=== PATIENT | male | born 1980 | race Caucasian/White ===

== ENCOUNTER 2019-02-02 05:00 | Emergency (ER) | payer MEDICAID, SELFPAY ==
[2019-02-02 05:02] VITALS: BP 141/74; PULSE 77; RESP 16; TEMP 36.6; O2SAT 97
--- NOTE | 2019-02-02 05:18 | W.ED.GENAD ---
Discharge Plan Disposition Patient Disposition: HOME Condition: Good Discharge Details Chief Complaint: Orthopedic Clinical Impression: Bursitis, Knee pain, left ED Provider: Escobar Umaña Home Meds and New Rx's Prescriptions: No Action No Known Home Meds RF: 0 Discharge Instructions Instructions: Knee Pain (ED) Additional Instructions: Please continue to use both Tylenol and Motrin for your knee pain. He can take 1000 mg of Tylenol and 800 mg of ibuprofen every 6 hours. Please continue to use the Torito wrap on your knee, as well as ice. If you notice any worsening of your symptoms, or any new symptoms such as vomiting, diarrhea, fever, chills, shortness of breath, chest pain, numbness, weakness, or fainting , please return immediately to the emergency department for reevaluation. Please follow up with your primary care provider as soon as possible for reassessment and reevaluation. As always, it was a pleasure participating in your medical care today. Medical Decision Making This is a pleasant 38-year-old male who presents for left knee pain for the last day. It occurred during the open wound when he was stretching. He denies any significant trauma. Physical exam demonstrates mild pain with flexion of the knee, no other joint abnormalities, no significant laxity. Signs and symptoms are concerning for mild bursitis, most likely patella bursitis. With no significant traumatic history I do not think that any additional x-ray imaging is indicated at this time. We will recommend continued Torito wrap, ice, Tylenol, Motrin, and we will give a Lidoderm patch here. The patient does not want any crutches at this time. I have extensively reviewed the treatment plan and discharge instructions with the patient. I have addressed all patient concerns at this time. The patient was made aware of what symptoms to monitor for that would warrant a return to the emergency department. Discussed the plan with the patient, they demonstrate verbal understanding and agreement with our assessment and plan at this time. HPI General Date/Time Provider Initiated Documentation: 02/02/19 05:09. HPI Narrative: This is a 38-year-old male with no significant past medical history who presents for evaluation of left knee pain for the last day. Patient states he was in yoga the other day when he was stretching his knee and felt something atypical. Since then he has had mild stiffness in his knee, worse with movement and bending, not made worse by placing weight on the knee. He has had minimal swelling. He denies any numbness, tingling, or weakness. He denies any other injuries or significant trauma. He denies any change in color or temperature or redness. She has no other complaints at this time. Related Data Home Medications Medication Instructions Recorded Confirmed Unknown [No Known Home Meds] 09/12/18 02/02/19 Allergies Allergy/AdvReac Type Severity Reaction Status Date / Time No Known Allergies Allergy Verified 02/02/19 05:04 General Stated Complaint: Orthopedic TADEO: 4 Review of Systems Review of Systems All systems reviewed & are unremarkable except as noted in HPI and below PFSH Medical History Chlamydia infection (Acute) Family History Maternal Grandmother Coronary artery disease Paternal Grandfather Prostate cancer Paternal Grandmother Diabetes Social History Smoking/Tobacco Use Status: Never Alcohol Intake: never Substance use type: does not use Household members: spouse Housing: apartment Number of Children: 1 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 3.ENT: Atraumatic external nose and ears. Moist MM. Neck: Symmetric, trachea midline, No thyromegaly. 4.CVS: +S1/S2, No murmurs or gallops. Peripheral pulses 2+ and equal in all extremities. Brisk capillary refill in all extremities. 5.RESP: Unlabored respiratory effort. Clear to auscultation bilaterally. No wheezes rales or rhonchi 6.GI: Soft, Nontender/Nondistended, No hepatosplenomegaly. No guarding or rebound. 7.MSK: Normocephalic/Atraumatic, Extremities w/o deformity or ttp No cyanosis or clubbing, Normal movement of all extremities. Minimal effusion of the left knee. No pain on palpation. The knee is stable to varus, valgus, and anterior drawer stress. No deformity. Patellar grind test is negative. Patient is able to walk without difficulty. No edema or warmth to the joint. No ttp to the patella, tibial plateau, or fibular head. Mild pain with flexion of the knee. No significant pain with extension. 8.Skin: Warm, Dry. No rashes or lesions. 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 Sensation grossly intact, no focal neurologic deficits. 10.Psych: (AAO) x3. Appropriate mood and affect Course Vital Signs Temperature 36.6 C 02/02/19 05:02 Pulse 77 02/02/19 05:02 Respiratory Rate 16 02/02/19 05:02 Blood Pressure 141/74 H 02/02/19 05:02 Pulse Oximetry 97 02/02/19 05:02 Temperature 36.6 C 02/02/19 05:02 Temperature Source Skin 02/02/19 05:02 Pulse 77 02/02/19 05:02 Respiratory Rate 16 02/02/19 05:02 Respiratory Effort Non-Labored 02/02/19 05:04 Blood Pressure 141/74 H 02/02/19 05:02 Blood Pressure Position Sitting 02/02/19 05:02 Pulse Oximetry 97 02/02/19 05:02 Oxygen Delivery Method Room Air 02/02/19 05:02 Oxygen Flow Rate 0 02/02/19 05:02 Pain Level 2 02/02/19 05:02 Comment 02/02/19 05:02
[2019-02-02] MEDS: Lidocaine 5% Patch 1 PATCH TP (05:25)
== END 2019-02-02 05:31 | disposition home or self-care (01) ==
LOC: ER 05:30
PROVIDERS: Emergency Provider Student in an Organized Health Care Education/Training Program; PCP Family Medicine
DX: M70.52 Other bursitis of knee, left knee (principal)
CPT/HCPCS: 99282

== ENCOUNTER 2019-02-03 15:53 | Outpatient (CLI) | payer MEDICAID, SELFPAY ==
--- NOTE | 2019-02-03 14:45 | DI.RAD_ITS ---
SYMPTOMS/DIAGNOSIS: PAIN ON SUPERIOR MEDIAL ASPECT OF PATELLA, PREPATELLAR BURSITIS, M70.40 LEFT KNEE: Examination was requested as a four-view knee, but the patient refused the complete series. Two views show no significant bony or soft tissue abnormality.
== END 2019-02-03 16:13 ==
PROVIDERS: PCP Family Medicine; Visit Provider Family Medicine
DX: M25.562 Pain in left knee (principal); M70.42 Prepatellar bursitis, left knee
CPT/HCPCS: 73564

== ENCOUNTER 2019-10-29 12:23 | Outpatient (CLI) | payer MEDICAID, SELFPAY ==
--- NOTE | 2019-10-29 11:28 | DI.RAD_ITS ---
EXAM: XR CHEST 2V PA LATERAL XR CHEST 2V PA LATERAL CLINICAL HISTORY: L lower cervical lymph node, mediastinal involved?, R59.0 enlarged lymph L lower cervical lymph node, mediastinal involved?, R59.0 enlarged lymph TECHNIQUE: 2D digital imaging was performed. COMPARISON: No exams were available for comparison FINDINGS: The heart is not enlarged. The lungs are clear and well expanded. No pleural effusion seen. Mediastin al contours appear intact. IMPRESSION: Normal chest. If there is a high clinical suspicion of mediastinal adenopathy, additional evaluation with chest CT could be obtained.
== END 2019-10-29 12:43 ==
PROVIDERS: PCP Family Medicine; Visit Provider Family Medicine
DX: R59.0 Localized enlarged lymph nodes (principal)
CPT/HCPCS: 71046

== ENCOUNTER 2019-10-29 13:45 | Outpatient (REF) | payer MEDICAID, SELFPAY ==
[2019-10-29 18:33] LABS: Absolute Basophil Count 0.01 k/cumm (0.0-0.2); Absolute Eosinophil Count 0.05 k/cumm (0.0-0.7); Absolute Lymphocyte Count 1.19 k/cumm (1.2-3.4); Absolute Monocyte Count 0.33 k/cumm (0.11-0.7); Absolute Neutrophil Count 2.17 k/cumm (1.2-6.7); Basophils % 0.3; Eosinophils % 1.3; HCT 44.6 % (40.0-50.0); Lymphocytes % 31.7; Mean Corp. HGB Concentration 33.6 g/dL (32.0-36.0); Mean Corpuscular Hemoglobin 29.1 pg (27.0-33.0); Mean Corpuscular Volume 86.4 fL (80-95); Mean Platelet Volume 10.2 fL (8.0-11.0); Monocytes % 8.8; Neutrophils % 57.9; Platelet Count 184 x1000/uL (130-400); RBC 5.16 m/cumm (4.50-6.00); RBC Distribution Width 12.2 % (11.8-14.1); White Blood Cell Count 3.75 k/cumm (4.4-10.8)
[2019-10-29 19:02] LABS: C-Reactive Protein 0.17 mg/dL (0.0-0.3); LDH 166 U/L (85-227)
== END 2019-10-29 14:05 ==
LOC: LBN 13:45
PROVIDERS: PCP Family Medicine; Visit Provider Family Medicine
DX: R59.0 Localized enlarged lymph nodes (principal)
CPT/HCPCS: 83615; 85025; 86140